=== PATIENT | male | born 1975 | race American Indian/Alaskan Native ===

== ENCOUNTER 2016-11-03 15:24 | Inpatient (IN) | payer OTHER ==
[2016-11-03] MEDS ORDERED: Sodium Chloride 0.9% 1,000 ML IV ONE (16:05)
[2016-11-03] MEDS ORDERED: Sodium Chloride 0.9% 1,000 ML ONE ×2 (16:16→18:15)
[2016-11-03 16:28] LABS: BASO # 0.1 K/uL (0.0-0.2); BASO % 0.6 % (0.0-2.0); EOS # 0.1 K/uL (0.0-0.7); EOS % 0.9 % (0.0-4.0); HEMATOCRIT 48.1 % (35.0-51.0); LYMPH # 1.7 K/uL (1.0-4.3); LYMPH % 17.9 % (20.0-40.0); MEAN CELL VOLUME 84.7 fL (80.0-94.0); MEAN CORPUSCULAR HEMOGLOBIN 28.2 pg (27.0-31.0); MEAN CORPUSCULAR HGB CONC 33.3 g/dL (33.0-37.0); MEAN PLATELET VOLUME 8.1 fL (7.2-11.7); MONO # 0.4 K/uL (0.0-0.8); MONO % 4.1 % (0.0-10.0); RED CELL DISTRIBUTION WIDTH 14.7 % (11.5-14.5); WHITE BLOOD COUNT 9.6 K/uL (4.8-10.8)
[2016-11-03 16:29] LABS: RBC URINE 11 /hpf (0-3); URINE BILIRUBIN NEGATIVE (NEGATIVE); URINE BLOOD NEGATIVE (NEGATIVE); URINE COLOR Yellow (YELLOW); URINE GLUCOSE (UA) NORMAL (Normal); URINE KETONE NEGATIVE (NEGATIVE); URINE LEUKOCYTE ESTERASE NEG Leu/uL (Negative); URINE PROTEIN 2+ mg/dL (NEGATIVE); URINE UROBILINOGEN NORMAL mg/dL (0.2-1.0); WBC URINE 4 /hpf (0-5)
[2016-11-03 16:52] LABS: CHLORIDE 95 mmol/L (98-107)
[2016-11-03 16:53] LABS: POTASSIUM 3.4 mmol/L (3.6-5.2); SODIUM 132 mmol/L (132-148)
--- NOTE | 2016-11-03 16:54 | C.PDOC ---
History Of Present Illness 41 year old patient, with a past medical history of kidney stones, presents to the ED complaining of left flank pain since yesterday. Patient states the pain is sharp. He denies any fever, nausea, vomiting, hematuria, or dysuria. He has a history of kidney stones, but no surgical intervention has been required. Time Seen by Provider: 11/03/16 16:04 Chief Complaint (Nursing): Male Genitourinary History Per: Patient History/Exam Limitations: no limitations Onset/Duration Of Symptoms: Days (yesterday) Current Symptoms Are (Timing): Still Present Severity: Mild Pain Scale Rating Of: 3 Quality Of Discomfort: Sharp, "Pain" Alleviating Factors: None Recent travel outside of the [place]: No Past Medical History Reviewed: Historical Data, Nursing Documentation, Vital Signs Vital Signs: Last Vital Signs Temp 98.6 F 11/03/16 18:24 Pulse 89 11/03/16 18:24 Resp 18 11/03/16 18:24 BP 122/75 11/03/16 18:24 Pulse Ox 100 11/03/16 18:28 - Medical History PMH: Kidney Stones Family History: States: Unknown Family Hx - Social History Hx Alcohol Use: No Hx Substance Use: No Review Of Systems Except As Marked, All Systems Reviewed And Found Negative. Constitutional: Negative for: Fever Gastrointestinal: Negative for: Nausea, Vomiting Genitourinary: Negative for: Dysuria, Hematuria Musculoskeletal: Positive for: Other (left flank pain) Physical Exam - Physical Exam Appears: Non-toxic, Other (mild distress) Skin: Warm, Dry Head: Atraumatic, Normacephalic Neck: Normal ROM, Supple Chest: Symmetrical Cardiovascular: Rhythm Regular Respiratory: Normal Breath Sounds, No Rales, No Rhonchi, No Wheezing Gastrointestinal/Abdominal: Soft, No Tenderness, No Guarding, No Rebound Back: CVA Tenderness (left), Other (left flank tenderness) Extremity: Normal ROM, No Pedal Edema, No Swelling Extremity: Bilateral: Atraumatic Neurological/Psych: Oriented x3, Normal Speech, Normal Cognition Gait: Steady ED Course And Treatment - Laboratory Results Result Diagrams: 11/03/16 16:09 11/03/16 16:09 O2 Sat by Pulse Oximetry: 100 (room air) Pulse Ox Interpretation: Normal - CT Scan/US Abdomen/Pelvis CT Other Rad Studies (CT/US): Read By Radiologist (Saskia Hill MD), Radiology Report Reviewed CT/US Interpretation: PROCEDURE: CT Abdomen and Pelvis without Oral or IV contrast. HISTORY: left flank pain - h/o kidney stones in past. COMPARISON: None available. TECHNIQUE: Contiguous axial images of the abdomen and pelvis. No oral or IV contrast administered. Coronal and Sagittal reformats generated and reviewed. Radiation dose: Total exam DLP = 286.22 mGy-cm. This CT exam was performed using one or more of the following dose reduction techniques: Automated exposure control, adjustment of the mA and/or kV according to patient size, and/or use of iterative reconstruction technique. FINDINGS: There is limited evaluation of the solid organs without the administration of IV contrast. Examination is also limited by paucity of intra-abdominal and intrapelvic fat. LOWER THORAX: No visible consolidation, pleural effusion, or pneumothorax. LIVER: Unremarkable unenhanced appearance. GALLBLADDER AND BILE DUCTS: Unremarkable unenhanced appearance. PANCREAS: Unremarkable unenhanced appearance. SPLEEN: Unremarkable unenhanced appearance. ADRENALS: Unremarkable unenhanced appearance. KIDNEYS AND URETERS: 12 mm proximal left ureteral calculus with proximal hydroureteronephrosis. No right-sided hydronephrosis or obstructing calculus identified. BLADDER: The urinary bladder appears unremarkable. REPRODUCTIVE: Unremarkable. APPENDIX: Not clearly identified. No secondary signs of acute appendicitis. BOWEL: The stomach is nondistended. Lack of oral contrast limits evaluation for bowel pathology. The bowel loops appear within normal limits of caliber without evidence of intestinal obstruction. PERITONEUM: No significant free fluid. No definite free air. LYMPH NODES: No bulky lymphadenopathy identified. VASCULATURE: Grossly unremarkable unenhanced appearance. BONES: No acute osseous abnormality is detected. OTHER FINDINGS: None. IMPRESSION: Limited study. 12 mm proximal left ureteral calculus with proximal hydroureteronephrosis. Progress Note: Plan: Abdomen/Pelvis CT, Labs, IV fluids, Toradol. Progress: Case discussed with Dr. Portillo, Urology, who recommends Cipro 400 mg Q12. He also states no po after midnight for intervention tomorrow. First dose of Cipro was given in the ED. Case discussed with Dr. Owens who was made aware and will admit the patient. Disposition - Disposition Disposition: HOSPITALIZED Disposition Time: 17:25 Condition: STABLE - Clinical Impression Clinical Impression: Nephrolithiasis - Scribe Statement The provider has reviewed the documentation as recorded by the Scribe Steph Dooley Provider Attestation: All medical record entries made by the Scribe were at my direction and personally dictated by me. I have reviewed the chart and agree that the record accurately reflects my personal performance of the history, physical exam, medical decision making, and the department course for this patient. I have also personally directed, reviewed, and agree with the discharge instructions and disposition.
[2016-11-03 16:55] LABS: ALB/GLOB RATIO 1.8 (1.0-2.1); ALKALINE PHOSPHATASE 106 U/L (38-126); ALT/SGPT 32 U/L (21-72); AST/SGOT 28 U/L (17-59); BILIRUBIN,TOTAL 1.1 mg/dL (0.2-1.3); BLOOD UREA NITROGEN 11 mg/dL (9-20); CALCIUM 9.3 mg/dl (8.6-10.4); CARBON DIOXIDE 24 mmol/L (22-30); GFR AFRICAN-AMERICAN > 60; GLUCOSE,RANDOM 94 mg/dL (75-110); TOTAL PROTEIN 8.5 g/dL (6.3-8.3)
--- NOTE | 2016-11-03 16:58 | CT ---
PROCEDURE: CT Abdomen and Pelvis without Oral or IV contrast. HISTORY: left flank pain - h/o kidney stones in past COMPARISON: None available. TECHNIQUE: Contiguous axial images of the abdomen and pelvis. No oral or IV contrast administered. Coronal and Sagittal reformats generated and reviewed. Radiation dose: Total exam DLP = 286.22 mGy-cm. This CT exam was performed using one or more of the following dose reduction techniques: Automated exposure control, adjustment of the mA and/or kV according to patient size, and/or use of iterative reconstruction technique. FINDINGS: There is limited evaluation of the solid organs without the administration of IV contrast. Examination is also limited by paucity of intra-abdominal and intrapelvic fat. LOWER THORAX: No visible consolidation, pleural effusion, or pneumothorax. LIVER: Unremarkable unenhanced appearance. GALLBLADDER AND BILE DUCTS: Unremarkable unenhanced appearance. PANCREAS: Unremarkable unenhanced appearance. SPLEEN: Unremarkable unenhanced appearance. ADRENALS: Unremarkable unenhanced appearance. KIDNEYS AND URETERS: 12 mm proximal left ureteral calculus with proximal hydroureteronephrosis. No right-sided hydronephrosis or obstructing calculus identified. BLADDER: The urinary bladder appears unremarkable. REPRODUCTIVE: Unremarkable. APPENDIX: Not clearly identified. No secondary signs of acute appendicitis. BOWEL: The stomach is nondistended. Lack of oral contrast limits evaluation for bowel pathology. The bowel loops appear within normal limits of caliber without evidence of intestinal obstruction. PERITONEUM: No significant free fluid. No definite free air. LYMPH NODES: No bulky lymphadenopathy identified. VASCULATURE: Grossly unremarkable unenhanced appearance. BONES: No acute osseous abnormality is detected. OTHER FINDINGS: None. IMPRESSION: Limited study. 12 mm proximal left ureteral calculus with proximal hydroureteronephrosis.
[2016-11-03] MEDS ORDERED: Ciprofloxacin 400mg/200ml D5W 400 MG/200 ML BAG IVPB SCH (18:00)
--- NOTE | 2016-11-03 18:02 | CP.PCM.HP ---
History of Present Illness - History of Present Illness History of Present Illness: This is a 41 year old male from [facility] who reports he has had 1 and a half days of left flank pain that radiates down to his groin. He explains he is aware he has a history of kidney stones in the past however this time it was very severe and didn't seem to go away. He reports he only has a history of kidney stones and is now aware of any other medical history. He denied difficulty urinating, denied dysuria, denied In the emergency room he had a CT scan of the abd and pelvis and has a 12 mm stone seen in the proximal ureter with some hydronephrosis seen. His UA showed some blood, otherwise no WBC. Lab work in ER was stable, he did not have an elevated WBC or left shift. No fever. He was started on Cipro 400 BID and will be NPO after midnight. By the time I saw patient in ER he had already recivied pain medication that he says helps and that the flank pain had resolved but that he still had left lower quardant pain He denied fever, denied chills, denied shortness of breath, denied chest pain, denied palpitations, denied headache, denied anxiety, denied feeling nervous, denied Medical History: Previous kidney stones but he explains he's never had hospitalizations for them Surgical History: None Family History: He reports both are ok, smoking Social History: Denied smoking, occasional alcohol, denied drug use Allergies: NKDA Present on Admission - Present on Admission Any Indicators Present on Admission: Yes History of DVT/PE: No History of Uncontrolled Diabetes: No Urinary Catheter: No Decubitus Ulcer Present: No Review of Systems - Constitutional Constitutional: As Per HPI. absent: Anorexia, Chills, Fever, Frequent Falls, Headache, Malaise, Night Sweats - EENT Eyes: As Per HPI. absent: Blurred Vision Ears: absent: Decreased Hearing, Ear Discharge Nose/Mouth/Throat: As Per HPI - Cardiovascular Cardiovascular: absent: Chest Pain, Chest Pain at Rest, Chest Pain with Activity , Claudication, Diaphoresis, Dyspnea, Dyspnea on Exertion, Edema, Irregular Heart Rhythm - Respiratory Respiratory: absent: Cough, Dyspnea, Hemoptysis, Dyspnea on Exertion, Wheezing, Snoring - Gastrointestinal Gastrointestinal: Abdominal Pain Additional comments: Left flank pain moving to groin - Genitourinary Genitourinary: As Per HPI, Flank Pain. absent: Change in Urinary Stream, Difficulty Urinating, Dysuria, Hematuria, Pyuria, Urinary Frequency, Urinary Hesitance - Musculoskeletal Musculoskeletal: absent: Abnormal Gait - Neurological Neurological: absent: Abnormal Gait Past Patient History - Past Social History Smoking Status: Never Smoked - RENAL Hx Kidney Stones: Yes - PSYCHIATRIC Hx Substance Use: No Meds Allergies/Adverse Reactions: Allergies Allergy/AdvReac Type Severity Reaction Status Date / Time No Known Allergies Allergy Verified 11/03/16 15:33 Physical Exam - Constitutional Appears: Well, Non-toxic, No Acute Distress - Head Exam Head Exam: NORMAL INSPECTION, NORMOCEPHALIC - Eye Exam Eye Exam: EOMI, Normal appearance - ENT Exam ENT Exam: Mucous Membranes Moist - Neck Exam Neck exam: Positive for: Normal Inspection - Respiratory Exam Respiratory Exam: Clear to Auscultation Bilateral, NORMAL BREATHING PATTERN - Cardiovascular Exam Cardiovascular Exam: REGULAR RHYTHM. absent: Diastolic murmur - GI/Abdominal Exam GI & Abdominal Exam: Normal Bowel Sounds, Soft. absent: Distended, Firm, Guarding Additional comments: Left flank pain - Extremities Exam Extremities exam: Positive for: normal inspection - Back Exam Back exam: CVA tenderness (L), NORMAL INSPECTION - Neurological Exam Neurological exam: Alert, CN II-XII Intact, Oriented x3 - Psychiatric Exam Psychiatric exam: Normal Affect, Normal Mood - Skin Skin Exam: Normal Color, Warm Results - Vital Signs Recent Vital Signs: Last Vital Signs Temp 98.3 F 11/03/16 15:33 Pulse 77 11/03/16 15:33 Resp 18 11/03/16 15:33 BP 147/107 H 11/03/16 15:33 Pulse Ox 100 11/03/16 17:51 - Labs Result Diagrams: 11/03/16 16:09 11/03/16 16:09 Assessment & Plan (1) Nephrolithiasis Status: Acute Priority: High Comment: 11/03: Patient had CT showing 12mm proximal stone, per urology will be NPO and started on Cipro 400 BID. Follow UA, UC+S
[2016-11-03] MEDS ORDERED: Ciprofloxacin 400mg/200ml D5W 400 MG/200 ML BAG IVPB ONE (18:15)
[2016-11-03] MEDS: Ciprofloxacin 400mg/200ml D5W 400 MG/200 ML BAG IVPB SCH (18:17)
[2016-11-03] MEDS: Sodium Chloride 0.9% 1,000 ML IV SCH (18:18)
[2016-11-03] MEDS ORDERED: Pneumococcal 23-Valent Vaccine IM ONE (20:19)
[2016-11-03 21:15] LABS: URINE BILIRUBIN NEGATIVE (NEGATIVE); URINE BLOOD 2+ (NEGATIVE); URINE COLOR Colorless (YELLOW); URINE GLUCOSE (UA) NORMAL (Normal); URINE KETONE NEGATIVE (NEGATIVE); URINE LEUKOCYTE ESTERASE 1+ Leu/uL (Negative); URINE PROTEIN NEGATIVE (NEGATIVE); URINE UROBILINOGEN NORMAL mg/dL (0.2-1.0); WBC URINE 1 /hpf (0-5)
[2016-11-04] MEDS: Sodium Chloride 0.9% 1,000 ML IV SCH ×3 (04:00→18:35)
[2016-11-04] MEDS: Ciprofloxacin 400mg/200ml D5W 400 MG/200 ML BAG IVPB SCH ×2 (05:54→18:00)
[2016-11-04 07:30] LABS: BASO # 0.1 K/uL (0.0-0.2); BASO % 1.4 % (0.0-2.0); EOS # 0.2 K/uL (0.0-0.7); EOS % 3.6 % (0.0-4.0); HEMATOCRIT 43.1 % (35.0-51.0); LYMPH # 2.2 K/uL (1.0-4.3); LYMPH % 39.2 % (20.0-40.0); MEAN CELL VOLUME 84.7 fL (80.0-94.0); MEAN CORPUSCULAR HEMOGLOBIN 28.2 pg (27.0-31.0); MEAN CORPUSCULAR HGB CONC 33.3 g/dL (33.0-37.0); MEAN PLATELET VOLUME 7.6 fL (7.2-11.7); MONO # 0.4 K/uL (0.0-0.8); MONO % 7.4 % (0.0-10.0); RED CELL DISTRIBUTION WIDTH 14.8 % (11.5-14.5); WHITE BLOOD COUNT 5.5 K/uL (4.8-10.8)
[2016-11-04 07:38] LABS: CHLORIDE 107 mmol/L (98-107)
[2016-11-04 07:39] LABS: POTASSIUM 3.7 mmol/L (3.6-5.2); SODIUM 138 mmol/L (132-148)
[2016-11-04 07:41] LABS: ALB/GLOB RATIO 1.1 (1.0-2.1); AST/SGOT 23 U/L (17-59); BILIRUBIN,TOTAL 1.8 mg/dL (0.2-1.3); BLOOD UREA NITROGEN 10 mg/dL (9-20); CARBON DIOXIDE 24 mmol/L (22-30); GFR AFRICAN-AMERICAN > 60; TOTAL PROTEIN 6.6 g/dL (6.3-8.3)
[2016-11-04 07:42] LABS: ALKALINE PHOSPHATASE 67 U/L (38-126); ALT/SGPT 24 U/L (21-72); CALCIUM 8.7 mg/dl (8.6-10.4); GLUCOSE,RANDOM 98 mg/dL (75-110)
--- NOTE | 2016-11-04 11:30 | RAD ---
HISTORY: Preoperative examination COMPARISON: No prior. FINDINGS: LUNGS: The lungs are well inflated and clear. PLEURA: No significant pleural effusion identified, no pneumothorax apparent. CARDIOVASCULAR: Normal. OSSEOUS STRUCTURES: No significant abnormalities. VISUALIZED UPPER ABDOMEN: Normal. OTHER FINDINGS: None. IMPRESSION: No active pulmonary disease.
[2016-11-04] MEDS ORDERED: Iohexol 240 (50 ml) ONE (15:05)
[2016-11-04] MEDS ORDERED: Ciprofloxacin 400mg/200ml D5W 0 MG/0 ML BAG IVPB ONE (15:05)
[2016-11-04] MEDS ORDERED: Midazolam 2 MG/2 ML VIAL ONE (15:07)
[2016-11-04] MEDS ORDERED: Propofol 10 mg/ml Inj (20 ML) ONE (15:07)
[2016-11-04] MEDS ORDERED: Lactated Ringer's 1,000 ML IV ONE (15:15)
[2016-11-04] MEDS: HYDROmorphone 0.5 mg/0.5 ml ISec IVP PRN ×2 (15:52→15:59)
--- NOTE | 2016-11-04 17:47 | RAD ---
PROCEDURE: Intraoperative Fluoroscopy. HISTORY: LEFT RENAL STONE FINDINGS: Fluoroscopic assistance was provided. Please refer to the intraoperative report.
[2016-11-04] MEDS: Lactated Ringer's 1,000 ML IV SCH (18:05)
--- NOTE | 2016-11-04 18:09 | CP.PCM.PN ---
<BlaiseLillie - Last Filed: 11/04/16 18:04> Subjective - Date & Time of Evaluation Date of Evaluation: 11/04/16 Time of Evaluation: 07:35 - Subjective Subjective: Patient seen and examined at bedside this morning. He denies pain and states that the medication he is getting is alleviating the pain. He denies N/V. He is NPO for stent placement today with Dr. Portillo. He has no other complaints. Objective - Vital Signs/Intake and Output Vital Signs (last 24 hours): Temp Pulse Resp BP Pulse Ox 97.4 F L 65 14 126/77 100 11/04/16 16:30 11/04/16 16:30 11/04/16 16:30 11/04/16 16:30 11/04/16 16:30 Intake and Output: 11/04/16 11/04/16 06:59 18:59 Intake Total 800 1750 Output Total 600 600 Balance 200 1150 - Medications Medications: Current Medications Heparin Sodium (Porcine) (Heparin) 5,000 units SC Q8 [facility] Last Admin: 11/04/16 13:31 Dose: Not Given Ciprofloxacin (Cipro 400mg/200ml Dsw) 400 mg in 200 mls @ 133 mls/hr IVPB Q12H [facility] Last Admin: 11/04/16 05:54 Dose: 133 mls/hr Sodium Chloride (Sodium Chloride 0.9%) 1,000 mls @ 150 mls/hr IV .Q6H40M [facility] Last Admin: 11/04/16 12:17 Dose: 150 mls/hr Lactated Ringer's (Lactated Ringer's) 1,000 mls @ 100 mls/hr IV .Q10H [facility] Ketorolac Tromethamine (Toradol) 30 mg IVP Q6 [facility] Stop: 11/05/16 00:01 Last Admin: 11/04/16 11:12 Dose: 30 mg Pantoprazole Sodium (Protonix Inj) 40 mg IVP DAILY [facility] Last Admin: 11/04/16 09:49 Dose: 40 mg - Labs Labs: 11/04/16 07:16 11/04/16 07:16 - Constitutional Appears: Non-toxic, No Acute Distress - Head Exam Head Exam: ATRAUMATIC, NORMAL INSPECTION - Eye Exam Eye Exam: EOMI, Normal appearance Pupil Exam: NORMAL ACCOMODATION - ENT Exam ENT Exam: Mucous Membranes Moist - Respiratory Exam Respiratory Exam: Clear to Ausculation Bilateral, NORMAL BREATHING PATTERN. absent: Accessory Muscle Use, Rales, Rhonchi, Wheezes, Respiratory Distress - Cardiovascular Exam Cardiovascular Exam: REGULAR RHYTHM, +S1, +S2 - GI/Abdominal Exam GI & Abdominal Exam: Soft, Normal Bowel Sounds. absent: Distended, Firm, Guarding, Tenderness - Extremities Exam Extremities Exam: Normal Inspection - Back Exam Back Exam: NORMAL INSPECTION. absent: CVA tenderness (L), CVA tenderness (R), paraspinal tenderness - Neurological Exam Neurological Exam: Alert, Awake, CN II-XII Intact, Normal Gait, Oriented x3 Neuro motor strength exam: Left Upper Extremity: 5, Right Upper Extremity: 5, Left Lower Extremity: 5, Right Lower Extremity: 5 - Psychiatric Exam Psychiatric exam: Normal Affect, Normal Mood - Skin Skin Exam: Intact, Normal Color, Warm Assessment and Plan - Assessment and Plan (Free Text) Assessment: Nephrolithiasis Hx of kidney stones in the past, never been hospitalized CT showing 12mm proximal stone Dr. Portillo urology, help appreciated - Stent placed in OR today (11/04) Cipro 400 IVPB BID Urine culture - negative for growth Toradol 30mg IVP prn pain LR at 11 cc/hour labs and eelctrolytes wnl Prophylactic Measures Heparin 5,000 U SC Q8 Protonix 40mg IVP daily SCDs Likely discharge tomorrow if cleared by urology. <Blake Owens - Last Filed: 11/05/16 08:18> Objective - Vital Signs/Intake and Output Vital Signs (last 24 hours): Temp Pulse Resp BP Pulse Ox 98.9 F 66 20 127/76 99 11/05/16 08:09 11/05/16 08:09 11/05/16 08:09 11/05/16 08:09 11/05/16 08:09 Intake and Output: 11/05/16 11/05/16 06:59 18:59 Intake Total 3100 Output Total 2350 Balance 750 - Medications Medications: Current Medications Heparin Sodium (Porcine) (Heparin) 5,000 units SC Q8 [facility] Last Admin: 11/05/16 06:00 Dose: 5,000 units Ciprofloxacin (Cipro 400mg/200ml Dsw) 400 mg in 200 mls @ 133 mls/hr IVPB Q12H [facility] Last Admin: 11/05/16 05:30 Dose: 133 mls/hr Sodium Chloride (Sodium Chloride 0.9%) 1,000 mls @ 150 mls/hr IV .Q6H40M [facility] Last Admin: 11/05/16 06:03 Dose: 150 mls/hr Lactated Ringer's (Lactated Ringer's) 1,000 mls @ 100 mls/hr IV .Q10H [facility] Last Admin: 11/05/16 02:00 Dose: Not Given Pantoprazole Sodium (Protonix Inj) 40 mg IVP DAILY [facility] Last Admin: 11/04/16 09:49 Dose: 40 mg - Labs Labs: 11/04/16 07:16 11/04/16 07:16 Assessment and Plan (1) Nephrolithiasis Status: Acute Attending/Attestation - Attestation I have personally seen and examined this patient.: Yes I have fully participated in the care of the patient.: Yes I have reviewed all pertinent clinical information, including history, physical exam and plan: Yes Notes (Text): Medical attending: Patient was seen and examined by me, agrees the above note by medical device. The patient in the morning was still nothing by mouth, he did receive some pain medication that he said controlled the pain very well. He had not yet had any intervention by urology at the time we saw him in the morning. Later on during the day are that he had a cystoscopy with stent placement. So at this time he's still on intravenous fluids as well as IV anti biotics. Following the cultures, and hopefully if he does well we could discharge the patient relatively soon Thank you very much, Blake Owens
[2016-11-05 00:57] VITALS: RESP 20
[2016-11-05] MEDS: Sodium Chloride 0.9% 1,000 ML IV SCH ×4 (01:00→13:46)
[2016-11-05] MEDS: Lactated Ringer's 1,000 ML IV SCH (02:00)
[2016-11-05] MEDS: Ciprofloxacin 400mg/200ml D5W 400 MG/200 ML BAG IVPB SCH (05:30)
[2016-11-05 08:06] LABS: BASO # 0.1 K/uL (0.0-0.2); BASO % 1.4 % (0.0-2.0); EOS # 0.3 K/uL (0.0-0.7); EOS % 5.5 % (0.0-4.0); HEMATOCRIT 42.6 % (35.0-51.0); LYMPH # 1.9 K/uL (1.0-4.3); LYMPH % 36.2 % (20.0-40.0); MEAN CELL VOLUME 84.6 fL (80.0-94.0); MEAN CORPUSCULAR HEMOGLOBIN 28.5 pg (27.0-31.0); MEAN CORPUSCULAR HGB CONC 33.6 g/dL (33.0-37.0); MEAN PLATELET VOLUME 7.9 fL (7.2-11.7); MONO # 0.4 K/uL (0.0-0.8); MONO % 6.8 % (0.0-10.0); NRBC % 0.1 % (0.0-2.0); RED CELL DISTRIBUTION WIDTH 14.8 % (11.5-14.5); WHITE BLOOD COUNT 5.2 K/uL (4.8-10.8)
[2016-11-05 08:10] VITALS: BP 127/76; PULSE 66; TEMP 98.9; O2SAT 99
[2016-11-05 08:21] LABS: CHLORIDE 107 mmol/L (98-107)
[2016-11-05 08:22] LABS: POTASSIUM 3.9 mmol/L (3.6-5.2); SODIUM 139 mmol/L (132-148)
[2016-11-05 08:24] LABS: ALB/GLOB RATIO 1.1 (1.0-2.1); AST/SGOT 22 U/L (17-59); BILIRUBIN,TOTAL 1.4 mg/dL (0.2-1.3); CARBON DIOXIDE 23 mmol/L (22-30); GFR AFRICAN-AMERICAN > 60; TOTAL PROTEIN 6.7 g/dL (6.3-8.3)
[2016-11-05 08:25] LABS: ALKALINE PHOSPHATASE 76 U/L (38-126); ALT/SGPT 22 U/L (21-72); BLOOD UREA NITROGEN 9 mg/dL (9-20); CALCIUM 8.7 mg/dl (8.6-10.4); GLUCOSE,RANDOM 98 mg/dL (75-110); PHOSPHOROUS 3.5 mg/dL (2.5-4.5)
--- NOTE | 2016-11-05 11:26 | RAD ---
HISTORY: Left renal stone COMPARISON: No prior. FINDINGS: There is a 16 x 15 mm round calcification overlying the left renal silhouette. There is no right nephrolithiasis. BOWEL: Non obstructive bowel gas pattern. BONES: Normal. OTHER FINDINGS: None. IMPRESSION: 15 x 16 mm left renal stone.
--- NOTE | 2016-11-05 15:54 | CP.PCM.DIS ---
<Birgit Forrester DO - Last Filed: 11/05/16 15:51> Provider - Provider Date of Admission: 11/03/16 17:23 Attending physician: Blake Owens DO Consults: Dr. Portillo Time Spent in preparation of Discharge (in minutes): 40 Diagnosis - Discharge Diagnosis (1) Nephrolithiasis Status: Acute Priority: High Comment: Patient status post cystoscopy with left ureteral stent with Dr. Portillo. Patient to follow up with Dr. Portillo on 11/11. Hospital Course - Lab Results Lab Results: Most Recent Lab Values WBC 5.2 K/uL (4.8-10.8) 11/05/16 07:51 RBC 5.03 Mil/uL (4.40-5.90) 11/05/16 07:51 Hgb 14.3 g/dL (12.0-18.0) 11/05/16 07:51 Hct 42.6 % (35.0-51.0) 11/05/16 07:51 MCV 84.6 fL (80.0-94.0) 11/05/16 07:51 MCH 28.5 pg (27.0-31.0) 11/05/16 07:51 MCHC 33.6 g/dL (33.0-37.0) 11/05/16 07:51 RDW 14.8 % (11.5-14.5) H 11/05/16 07:51 Plt Count 255 K/uL (130-400) 11/05/16 07:51 MPV 7.9 fL (7.2-11.7) 11/05/16 07:51 Neut % (Auto) 50.1 % (50.0-75.0) 11/05/16 07:51 Lymph % (Auto) 36.2 % (20.0-40.0) 11/05/16 07:51 Archuleta % (Auto) 6.8 % (0.0-10.0) 11/05/16 07:51 Eos % (Auto) 5.5 % (0.0-4.0) H 11/05/16 07:51 Baso % (Auto) 1.4 % (0.0-2.0) 11/05/16 07:51 Neut # 2.6 K/uL (1.8-7.0) 11/05/16 07:51 Lymph # 1.9 K/uL (1.0-4.3) 11/05/16 07:51 Archuleta # 0.4 K/uL (0.0-0.8) 11/05/16 07:51 Eos # 0.3 K/uL (0.0-0.7) 11/05/16 07:51 Baso # 0.1 K/uL (0.0-0.2) 11/05/16 07:51 Sodium 139 mmol/L (132-148) 11/05/16 07:51 Potassium 3.9 mmol/L (3.6-5.2) 11/05/16 07:51 Chloride 107 mmol/L (98-107) 11/05/16 07:51 Carbon Dioxide 23 mmol/L (22-30) 11/05/16 07:51 Anion Gap 13 (10-20) 11/05/16 07:51 BUN 9 mg/dL (9-20) 11/05/16 07:51 Creatinine 0.9 MG/DL (0.8-1.5) 11/05/16 07:51 Est GFR ( Amer) > 60 11/05/16 07:51 Est GFR (Non-Af Amer) > 60 11/05/16 07:51 Random Glucose 98 mg/dL (75-110) 11/05/16 07:51 Calcium 8.7 mg/dl (8.6-10.4) 11/05/16 07:51 Phosphorus 3.5 mg/dL (2.5-4.5) 11/05/16 07:51 Magnesium 2.0 mg/dL (1.6-2.3) 11/05/16 07:51 Total Bilirubin 1.4 mg/dL (0.2-1.3) H 11/05/16 07:51 AST 22 U/L (17-59) 11/05/16 07:51 ALT 22 U/L (21-72) 11/05/16 07:51 Alkaline Phosphatase 76 U/L (38-126) 11/05/16 07:51 Total Protein 6.7 g/dL (6.3-8.3) 11/05/16 07:51 Albumin 3.6 g/dL (3.5-5.0) 11/05/16 07:51 Globulin 3.1 gm/dL (2.2-3.9) 11/05/16 07:51 Albumin/Globulin Ratio 1.1 (1.0-2.1) 11/05/16 07:51 Lipase 35 U/L (23-300) 11/03/16 16:09 Urine Color Colorless (YELLOW) 11/03/16 21:04 Urine Clarity Clear (Clear) 11/03/16 21:04 Urine pH 7.0 (5.0-8.0) 11/03/16 21:04 Ur Specific [place] 1.001 (1.003-1.030) L 11/03/16 21:04 Urine Protein Negative mg/dL (NEGATIVE) 11/03/16 21:04 Urine Glucose (UA) Normal mg/dL (Normal) 11/03/16 21:04 Urine Ketones Negative mg/dL (NEGATIVE) 11/03/16 21:04 Urine Blood 2+ (NEGATIVE) H 11/03/16 21:04 Urine Nitrate Negative (NEGATIVE) 11/03/16 21:04 Urine Bilirubin Negative (NEGATIVE) 11/03/16 21:04 Urine Urobilinogen Normal mg/dL (0.2-1.0) 11/03/16 21:04 Ur Leukocyte Esterase 1+ Tyron/uL (Negative) H 11/03/16 21:04 Urine WBC (Auto) 1 /hpf (0-5) 11/03/16 21:04 Urine RBC (Auto) 11 /hpf (0-3) H 11/03/16 16:09 Ur Squamous Epith Cells < 1 /hpf (0-5) 11/03/16 16:09 - Hospital Course Hospital Course: On Admission: This is a 41 year old male from [facility] who reports he has had 1 and a half days of left flank pain that radiates down to his groin. He explains he is aware he has a history of kidney stones in the past however this time it was very severe and didn't seem to go away. He reports he only has a history of kidney stones and is now aware of any other medical history. He denied difficulty urinating, denied dysuria, denied In the emergency room he had a CT scan of the abd and pelvis and has a 12 mm stone seen in the proximal ureter with some hydronephrosis seen. His UA showed some blood, otherwise no WBC. Lab work in ER was stable, he did not have an elevated WBC or left shift. No fever. He was started on Cipro 400 BID and will be NPO after midnight. By the time I saw patient in ER he had already recivied pain medication that he says helps and that the flank pain had resolved but that he still had left lower quardant pain He denied fever, denied chills, denied shortness of breath, denied chest pain, denied palpitations, denied headache, denied anxiety, denied feeling nervous, denied During Hospitalization: Patient had cystoscopy with left ureteral stent placed. Urine culture was negative for growth. CT scan showed 12mm proximal stone. On Discharge: Patient is stable for discharge home per Dr. Owens. Patient is to follow up with Dr. Portillo on 11/11 at 1PM. Patient is being given prescriptions for vicodin and macrobid per Dr. Potrillo. Patient is to follow up with the [facility] to establish care. Patient is to return to the ED if his symptoms reoccur or worsen. This was explained to the patient who understands and agrees. Discharge Exam - Head Exam Head Exam: ATRAUMATIC, NORMAL INSPECTION - Eye Exam Eye Exam: EOMI - ENT Exam ENT Exam: Mucous Membranes Moist - Respiratory Exam Respiratory Exam: Clear to PA & Lateral, NORMAL BREATHING PATTERN - Cardiovascular Exam Cardiovascular Exam: +S1, +S2 - GI/Abdominal Exam GI & Abdominal Exam: Soft. absent: Tenderness - Extremities Exam Extremities exam: normal inspection - Neurological Exam Neurological exam: Alert, Oriented x3 - Psychiatric Exam Psychiatric exam: Normal Affect - Skin Skin Exam: Dry, Warm Discharge Plan - Follow Up Plan Condition: STABLE Disposition: HOME/ ROUTINE Additional Instructions: Patient is stable for discharge home per Dr. Owens. Patient is to follow up with Dr. Portillo on 11/11 at 1PM. Patient is being given prescriptions for vicodin and macrobid per Dr. Portillo. Patient is to follow up with the [facility] to establish care. Patient is to return to the ED if his symptoms reoccur or worsen. This was explained to the patient who understands and agrees. Referrals: [facility] [Outside] Jude Portillo MD [Staff Provider] - 11/11/16 (1PM with Dr. Portillo.) <Blake Owens - Last Filed: 11/05/16 16:18> Provider - Provider Date of Admission: 11/03/16 17:23 Attending physician: Blake Owens DO Diagnosis - Discharge Diagnosis (1) Nephrolithiasis Status: Acute Priority: High Hospital Course - Lab Results Lab Results: Most Recent Lab Values WBC 5.2 K/uL (4.8-10.8) 11/05/16 07:51 RBC 5.03 Mil/uL (4.40-5.90) 11/05/16 07:51 Hgb 14.3 g/dL (12.0-18.0) 11/05/16 07:51 Hct 42.6 % (35.0-51.0) 11/05/16 07:51 MCV 84.6 fL (80.0-94.0) 11/05/16 07:51 MCH 28.5 pg (27.0-31.0) 11/05/16 07:51 MCHC 33.6 g/dL (33.0-37.0) 11/05/16 07:51 RDW 14.8 % (11.5-14.5) H 11/05/16 07:51 Plt Count 255 K/uL (130-400) 11/05/16 07:51 MPV 7.9 fL (7.2-11.7) 11/05/16 07:51 Neut % (Auto) 50.1 % (50.0-75.0) 11/05/16 07:51 Lymph % (Auto) 36.2 % (20.0-40.0) 11/05/16 07:51 Archuleta % (Auto) 6.8 % (0.0-10.0) 11/05/16 07:51 Eos % (Auto) 5.5 % (0.0-4.0) H 11/05/16 07:51 Baso % (Auto) 1.4 % (0.0-2.0) 11/05/16 07:51 Neut # 2.6 K/uL (1.8-7.0) 11/05/16 07:51 Lymph # 1.9 K/uL (1.0-4.3) 11/05/16 07:51 Archuleta # 0.4 K/uL (0.0-0.8) 11/05/16 07:51 Eos # 0.3 K/uL (0.0-0.7) 11/05/16 07:51 Baso # 0.1 K/uL (0.0-0.2) 11/05/16 07:51 Sodium 139 mmol/L (132-148) 11/05/16 07:51 Potassium 3.9 mmol/L (3.6-5.2) 11/05/16 07:51 Chloride 107 mmol/L (98-107) 11/05/16 07:51 Carbon Dioxide 23 mmol/L (22-30) 11/05/16 07:51 Anion Gap 13 (10-20) 11/05/16 07:51 BUN 9 mg/dL (9-20) 11/05/16 07:51 Creatinine 0.9 MG/DL (0.8-1.5) 11/05/16 07:51 Est GFR ( Amer) > 60 11/05/16 07:51 Est GFR (Non-Af Amer) > 60 11/05/16 07:51 Random Glucose 98 mg/dL (75-110) 11/05/16 07:51 Calcium 8.7 mg/dl (8.6-10.4) 11/05/16 07:51 Phosphorus 3.5 mg/dL (2.5-4.5) 11/05/16 07:51 Magnesium 2.0 mg/dL (1.6-2.3) 11/05/16 07:51 Total Bilirubin 1.4 mg/dL (0.2-1.3) H 11/05/16 07:51 AST 22 U/L (17-59) 11/05/16 07:51 ALT 22 U/L (21-72) 11/05/16 07:51 Alkaline Phosphatase 76 U/L (38-126) 11/05/16 07:51 Total Protein 6.7 g/dL (6.3-8.3) 11/05/16 07:51 Albumin 3.6 g/dL (3.5-5.0) 11/05/16 07:51 Globulin 3.1 gm/dL (2.2-3.9) 11/05/16 07:51 Albumin/Globulin Ratio 1.1 (1.0-2.1) 11/05/16 07:51 Lipase 35 U/L (23-300) 11/03/16 16:09 Urine Color Colorless (YELLOW) 11/03/16 21:04 Urine Clarity Clear (Clear) 11/03/16 21:04 Urine pH 7.0 (5.0-8.0) 11/03/16 21:04 Ur Specific [place] 1.001 (1.003-1.030) L 11/03/16 21:04 Urine Protein Negative mg/dL (NEGATIVE) 11/03/16 21:04 Urine Glucose (UA) Normal mg/dL (Normal) 11/03/16 21:04 Urine Ketones Negative mg/dL (NEGATIVE) 11/03/16 21:04 Urine Blood 2+ (NEGATIVE) H 11/03/16 21:04 Urine Nitrate Negative (NEGATIVE) 11/03/16 21:04 Urine Bilirubin Negative (NEGATIVE) 11/03/16 21:04 Urine Urobilinogen Normal mg/dL (0.2-1.0) 11/03/16 21:04 Ur Leukocyte Esterase 1+ Tyron/uL (Negative) H 11/03/16 21:04 Urine WBC (Auto) 1 /hpf (0-5) 11/03/16 21:04 Urine RBC (Auto) 11 /hpf (0-3) H 11/03/16 16:09 Ur Squamous Epith Cells < 1 /hpf (0-5) 11/03/16 16:09 Attending/Attestation - Attestation I have personally seen and examined this patient.: Yes I have fully participated in the care of the patient.: Yes I have reviewed all pertinent clinical information, including history, physical exam and plan: Yes Notes (Text): 11/05/16 16:16 Medical attending: Patient was seen and examined by me, agrees the above note by medical staff physician. The patient successfully had a left cystoscopy with stent placement. The patient reported that the pain that he was having in his flanks as well as his left lower quadrant of the abdomen that radiated to his groin this pain is resolved. He was given instructions by urology to follow-up. There is also a prescription by urology for pain medication as well as anti-biotic. We also explained to the patient that he should consider following up at the [facility] in case he does not have insurance Reviewed some of his lab work and they are stable the BUN/creatinine is fine, white blood cell count was fine. He denied having chest pain denied shortness of breath, denied abdominal pain. He also denied fever. So at this time we will discharge the patient Thank you very much, Blake Owens
--- NOTE | 2016-11-06 08:38 | CARD ---
APPROVED REPORT EKG Measurement Heart [id number] <Conclusion> Normal sinus rhythm Left anterior fascicular block Left ventricular hypertrophy with QRS widening Cannot rule out Septal infarct, age undetermined Abnormal ECG
== END 2016-11-05 14:42 | disposition home or self-care (01) | DRG 324 ==
LOC: C.ER 15:24 → C.9E 17:23 → C.3T 18:08
PROVIDERS: ADMIT Hospitalist; ATTEND Hospitalist
PROC: 0T778DZ Dilation of Left Ureter with Intraluminal Device, Via Natural or Artificial Opening Endoscopic (ICD-10-PCS; principal; 2016-11-03)
DX: N13.2 Hydronephrosis with renal and ureteral calculous obstruction (principal); Z87.442 Personal history of urinary calculi

== ENCOUNTER 2016-11-21 10:17 | Emergency (ER) | payer MEDICAID ==
[2016-11-21 10:18] VITALS: BMI 27.1
[2016-11-21 10:21] VITALS: RESP 18; O2SAT 99
[2016-11-21] MEDS ORDERED: Sodium Chloride 0.9% 1,000 ML IV ONE (11:18)
[2016-11-21 11:38] LABS: SQUAMOUS EPITHIAL < 1 /hpf (0-5); URINE BACTERIA RARE (<OCC); URINE BILIRUBIN NEGATIVE (NEGATIVE); URINE BLOOD 1+ (NEGATIVE); URINE CLARITY Clear (Clear); URINE COLOR Yellow (YELLOW); URINE GLUCOSE (UA) NORMAL (Normal); URINE LEUKOCYTE ESTERASE 2+ Leu/uL (Negative); URINE NITRATE NEGATIVE (NEGATIVE); URINE PROTEIN 1+ mg/dL (NEGATIVE); URINE UROBILINOGEN NORMAL mg/dL (0.2-1.0)
[2016-11-21] MEDS ORDERED: Sodium Chloride 0.9% 1,000 ML ONE (11:39)
[2016-11-21] MEDS ORDERED: Morphine 4 MG/ML VIAL ONE (11:39)
[2016-11-21 11:50] LABS: BASO # 0.1 K/uL (0.0-0.2); BASO % 1.7 % (0.0-2.0); EOS # 0.3 K/uL (0.0-0.7); EOS % 5.8 % (0.0-4.0); HEMOGLOBIN 15.9 g/dL (12.0-18.0); LYMPH # 2.5 K/uL (1.0-4.3); LYMPH % 41.9 % (20.0-40.0); MEAN CELL VOLUME 84.3 fL (80.0-94.0); MEAN CORPUSCULAR HEMOGLOBIN 28.2 pg (27.0-31.0); MEAN CORPUSCULAR HGB CONC 33.5 g/dL (33.0-37.0); MEAN PLATELET VOLUME 7.8 fL (7.2-11.7); MONO # 0.4 K/uL (0.0-0.8); MONO % 5.9 % (0.0-10.0); NEUT # 2.7 K/uL (1.8-7.0); NEUT % 44.7 % (50.0-75.0); RBC 5.63 Mil/uL (4.40-5.90); RED CELL DISTRIBUTION WIDTH 14.9 % (11.5-14.5); WHITE BLOOD COUNT 5.9 K/uL (4.8-10.8)
[2016-11-21 11:52] LABS: ALBUMIN 4.3 g/dL (3.5-5.0)
[2016-11-21 11:55] LABS: AST/SGOT 31 U/L (17-59); GFR AFRICAN-AMERICAN > 60; GFR NON-AFRICAN AMERICAN > 60
[2016-11-21 11:56] LABS: ALB/GLOB RATIO 1.1 (1.0-2.1); ALT/SGPT 26 U/L (21-72); BLOOD UREA NITROGEN 10 mg/dL (9-20); CALCIUM 9.6 mg/dl (8.6-10.4); LIPASE 28 U/L (23-300)
--- NOTE | 2016-11-21 12:38 | CT ---
PROCEDURE: CT Abdomen and Pelvis without intravenous contrast HISTORY: Left flank pain, r/o stone COMPARISON: 11/03/2016 TECHNIQUE: CT scan of the abdomen and pelvis was performed without administration of intravenous contrast. Oral contrast was not administered. Coronal and sagittal reformatted images were obtained. Radiation dose: Total exam DLP = 577.13 mGy-cm. This CT exam was performed using one or more of the following dose reduction techniques: Automated exposure control, adjustment of the mA and/or kV according to patient size, and/or use of iterative reconstruction technique. FINDINGS: This study was performed for targeted evaluation for urinary calculi and should not be considered a complete CT scan of the abdomen and pelvis. Examination is limited in the absence of oral and intravenous contrast. LOWER THORAX: The lung bases are clear. LIVER: The liver is normal. No gross lesion or ductal dilatation. GALLBLADDER AND BILE DUCTS: There are no calcified gallstones. PANCREAS: The pancreas is normal in size. No gross lesion or ductal dilatation. SPLEEN: The spleen is normal in size. ADRENALS: Normal in size. No mass. KIDNEYS AND URETERS: Both kidneys are normal in size. There is redemonstration of a 14 x 12 mm round obstructing stone at the left UV junction with interval decompression of the collecting system. There has been interval placement of a double-J ureteral stent which is in customary position with its proximal tip in the upper pole collecting system. No nephrolithiasis. VASCULATURE: Unremarkable. BOWEL: The small bowel loops are normal in caliber. There is moderate amount of stool in the colon. APPENDIX: No inflammatory changes in the right lower quadrant. The appendix is normal. PERITONEUM: No free fluid. No free air. LYMPH NODES: No enlarged lymph nodes. BLADDER: The urinary bladder is well distended and normal in appearance REPRODUCTIVE: Unremarkable. BONES: No acute fracture. Within normal limits for the patient's age. OTHER FINDINGS: None. IMPRESSION: Interval placement of a left pelviureteral stent with remains in customary position. Stable position of a 14 x 12 mm obstructing stone at the left UV junction. Mild fullness in the upper pole collecting system without sahil hydronephrosis.
--- NOTE | 2016-11-21 13:16 | C.PDOC ---
Time Seen by Provider: 11/21/16 10:55 Chief Complaint (Nursing): Back Pain Past Medical History Vital Signs: Last Vital Signs Temp 98.1 F 11/21/16 10:19 Pulse 76 11/21/16 10:19 Resp 18 11/21/16 10:19 BP 129/68 11/21/16 10:19 Pulse Ox 99 11/21/16 10:19 - Medical History PMH: Kidney Stones, Chronic Kidney Disease - [facility] Procedures DILATION OF LEFT URETER WITH INTRALUMINAL DEVICE, ENDO (11/03/16) Family History: States: Unknown Family Hx - Social History Hx Alcohol Use: No Hx Substance Use: No ED Course And Treatment - Laboratory Results Result Diagrams: 11/21/16 11:37 11/21/16 11:37 O2 Sat by Pulse Oximetry: 99
--- NOTE | 2016-11-21 13:16 | C.PDOC ---
History Of Present Illness 41-year-old male, presents to the emergency department with complaints of back pain. Patient states he has been experiencing left-flank pain for the past two weeks. Pain is 8/10, associated with nausea and dysuria. Patient was seen by his PMD, who prescribed pain meds, and referred him to the urologist, who sent him to the ED for further evaluation. Patient denies vomiting, fevers, chills, chest pain, shortness of breath, or any other associated symptoms. No other complaints at this time. Urologist Dr Portillo Time Seen by Provider: 11/21/16 10:55 Chief Complaint (Nursing): Back Pain History Per: Patient History/Exam Limitations: no limitations Onset/Duration Of Symptoms: Days Current Symptoms Are (Timing): Still Present Severity: Moderate Past Medical History Reviewed: Historical Data, Nursing Documentation, Vital Signs Vital Signs: Last Vital Signs Temp 98.5 F 11/21/16 13:23 Pulse 75 11/21/16 14:39 Resp 18 11/21/16 13:23 BP 134/85 11/21/16 13:23 Pulse Ox 99 11/21/16 18:38 - Medical History PMH: Kidney Stones, Chronic Kidney Disease - [facility] Procedures DILATION OF LEFT URETER WITH INTRALUMINAL DEVICE, ENDO (11/03/16) Family History: States: No Known Family Hx - Social History Hx Alcohol Use: No Hx Substance Use: No Review Of Systems Except As Marked, All Systems Reviewed And Found Negative. Constitutional: Negative for: Fever Cardiovascular: Negative for: Chest Pain Respiratory: Negative for: Shortness of Breath Gastrointestinal: Positive for: Nausea. Negative for: Vomiting, Abdominal Pain Genitourinary: Positive for: Dysuria. Negative for: Hematuria Musculoskeletal: Positive for: Back Pain Physical Exam - Physical Exam Appears: Non-toxic, No Acute Distress Skin: Warm, Dry, No Rash Head: Atraumatic, Normacephalic Eye(s): bilateral: Normal Inspection, PERRL, EOMI Nose: Normal Oral Mucosa: Moist Lips: Normal Appearing Neck: Normal ROM Cardiovascular: Rhythm Regular, No Murmur Respiratory: Normal Breath Sounds, No Accessory Muscle Use, No Rales, No Rhonchi , No Wheezing Gastrointestinal/Abdominal: Soft, No Tenderness Back: CVA Tenderness (Left), No Vertebral Tenderness, No Paraspinal Tenderness Extremity: Normal ROM, No Tenderness, No Swelling Neurological/Psych: Oriented x3, Normal Speech, Normal Motor Gait: Steady ED Course And Treatment - Laboratory Results Result Diagrams: 11/21/16 11:37 11/21/16 11:37 O2 Sat by Pulse Oximetry: 99 (on RA) Pulse Ox Interpretation: Normal - CT Scan/US CT ABD.PEL Other Rad Studies (CT/US): Read By Radiologist, Radiology Report Reviewed CT/US Interpretation: Accession No. : [id number]. Patient Name / ID : SHELLY ZALDIVAR / [id number]. Exam Date : 11/21/2016 12:07:05 ( Approved ). Study Comment : Sex / Age : M / 41Y. Creator : DARON LO MD. Dictator : DARON LO MD. Computer Science Instructor : Literacy Tutor : DARON LO MD. Approver2 : Report Date : 11/21/2016 12:36:31. My Comment : . PROCEDURE: CT Abdomen and Pelvis without intravenous contrast. HISTORY: Left flank pain, r/o stone. COMPARISON: 11/03/2016. TECHNIQUE: CT scan of the abdomen and pelvis was performed without administration of intravenous contrast. Oral contrast was not administered. Coronal and sagittal reformatted images were obtained. Radiation dose: Total exam DLP = 577.13 mGy-cm. This CT exam was performed using one or more of the following dose reduction techniques: Automated exposure control, adjustment of the mA and/or kV according to patient size, and/ or use of iterative reconstruction technique. FINDINGS: This study was performed for targeted evaluation for urinary calculi and should not be considered a complete CT scan of the abdomen and pelvis. Examination is limited in the absence of oral and intravenous contrast. LOWER THORAX: The lung bases are clear. LIVER: The liver is normal. No gross lesion or ductal dilatation. GALLBLADDER AND BILE DUCTS: There are no calcified gallstones. PANCREAS: The pancreas is normal in size. No gross lesion or ductal dilatation. SPLEEN: The spleen is normal in size. ADRENALS: Normal in size. No mass. KIDNEYS AND URETERS: Both kidneys are normal in size. There is redemonstration of a 14 x 12 mm round obstructing stone at the left UV junction with interval decompression of the collecting system. There has been interval placement of a double-J ureteral stent which is in customary position with its proximal tip in the upper pole collecting system. No nephrolithiasis. VASCULATURE: Unremarkable. BOWEL: The small bowel loops are normal in caliber. There is moderate amount of stool in the colon. APPENDIX: No inflammatory changes in the right lower quadrant. The appendix is normal. PERITONEUM: No free fluid. No free air. LYMPH NODES: No enlarged lymph nodes. BLADDER: The urinary bladder is well distended and normal in appearance. REPRODUCTIVE: Unremarkable. BONES: No acute fracture. Within normal limits for the patient's age. OTHER FINDINGS: None. IMPRESSION: Interval placement of a left pelviureteral stent with remains in customary position. Stable position of a 14 x 12 mm obstructing stone at the left UV junction. Mild fullness in the upper pole collecting system without sahil hydronephrosis. Progress Note: CT Abd/Pel, bloodwork, UA and urine culture ordered and reviewed. patient treated with IVFs, Toradol, Zofran, and Morphine Medical Decision Making Medical Decision Making: The case was discussed with Dr. Portillo (Urologist) who states that the patient had a stent placed on Monday and placed on Macrobid. He states that the pt will need to follow up [facility] for possible lithotripsy in 2 days. On re-exam, the patient reports improvement of symptoms. Lungs are CTA, heart is RRR, abdomen is soft, non-tender and patient is tolerating PO well. Ambulatory in the ED with steady gait. Follow up with the medical doctor within 1-2 days. Return if worsened. Disposition - Disposition Referrals: Jude Portillo MD [Staff Provider] - Disposition: HOME/ ROUTINE Disposition Time: 12:30 Condition: GOOD Additional Instructions: YOU WILL BE SCHEDULED FOR POSSIBLE LITHOTRIPSY IN [address] FOLLOW UP WITH DR. PORTILLO WITHIN 1-2 DAYS WITHOUT FAIL. RETURN IF WORSENED. Prescriptions: Naproxen [Naprosyn] 500 mg PO BID #20 tab oxyCODONE/Acetaminophen [Percocet 5/325 mg Tab] 1 tab PO QID PRN #20 tab PRN Reason: Pain Tamsulosin [Flomax] 0.4 mg PO DAILY #30 cap Instructions: Renal Colic (ED) Forms: Gen Discharge Inst Croatian - Clinical Impression Clinical Impression: Nephrolithiasis, Hydronephrosis - PA / LOCOMOTIVE ENGINEER DIESEL / Resident Statement MD/DO has reviewed & agrees with the documentation as recorded. - Scribe Statement The provider has reviewed the documentation as recorded by the Simonaibdanae Thompson All medical record entries made by the Simonaibdanae were at my direction and personally dictated by me. I have reviewed the chart and agree that the record accurately reflects my personal performance of the history, physical exam, medical decision making, and the department course for this patient. I have also personally directed, reviewed, and agree with the discharge instructions and disposition.
[2016-11-21 13:24] VITALS: BP 134/85; TEMP 98.5
[2016-11-21 14:40] VITALS: PULSE 75
== END 2016-11-21 14:40 | disposition home or self-care (01) ==
LOC: C.ER 10:17
DX: N20.0 Calculus of kidney (principal); N13.30 Unspecified hydronephrosis
CPT/HCPCS: 74176; 80053; 81001; 83690; 85025; 87086; 96374; 96375; 99285; J1885; J2270; J2405; J7040

== ENCOUNTER 2016-12-09 07:07 | Emergency (ER) | payer MEDICAID ==
[2016-12-09 07:07] VITALS: BMI 27.1
[2016-12-09] MEDS ORDERED: Sodium Chloride 0.9% 1,000 ML IV ONE (07:59)
--- NOTE | 2016-12-09 08:00 | C.PDOC ---
History Of Present Illness 41 yr old male with history of left kidney stone, s/p stent placement by , presents to the ER for reevaluation of left flank pain worsening for the past week. Patient reports similar symptoms in the past, was seen in ED on 11/21/16 for similar complaints. Patient describes the pain as left flank, constant, severe, radiating to left groin and pubic area. Patient reports difficulty urinating. Denies fever, chills, dizziness, neck pain, sore throat, nausea, vomiting, hematuria, testicular swelling and pain. Ambulate to Ed for evaluation, appears in pain. Time Seen by Provider: 12/09/16 07:25 Chief Complaint (Nursing): Back Pain History Per: Patient History/Exam Limitations: no limitations Onset/Duration Of Symptoms: Worse Since (Past week ) Past Medical History Reviewed: Historical Data, Nursing Documentation, Vital Signs Vital Signs: Last Vital Signs Temp 98.1 F 12/09/16 11:21 Pulse 69 12/09/16 11:21 Resp 18 12/09/16 11:21 BP 135/87 12/09/16 11:21 Pulse Ox 100 12/09/16 11:21 - Medical History PMH: Kidney Stones, Chronic Kidney Disease - [facility] Procedures DILATION OF LEFT URETER WITH INTRALUMINAL DEVICE, ENDO (11/03/16) Family History: States: No Known Family Hx - Social History Hx Alcohol Use: Yes Hx Substance Use: No Review Of Systems Except As Marked, All Systems Reviewed And Found Negative. Constitutional: Negative for: Fever Gastrointestinal: Positive for: Abdominal Pain (Left flank pain ). Negative for : Nausea, Vomiting Genitourinary: Positive for: Other ((+) Radiating pain to eft groin pain and pubic area). Negative for: Dysuria, Hematuria Neurological: Negative for: Weakness, Numbness Physical Exam - Physical Exam Appears: Non-toxic, Toxic, Other (severe painful discomfort) Skin: Warm, Dry, No Rash Oral Mucosa: Moist, No Drooling Throat: No Erythema, No Exudate, No Drooling Neck: Supple Chest: Symmetrical, No Tenderness Cardiovascular: Rhythm Regular, No Murmur Respiratory: No Rales, No Rhonchi, No Wheezing Gastrointestinal/Abdominal: Soft, Tenderness (Mod Left flank tenderness, mild suprapubic tenderness), No Organomegaly, No Distention, No Guarding, No Rebound Back: No CVA Tenderness Extremity: No Pedal Edema, No Swelling Neurological/Psych: Oriented x3, Normal Speech, Normal Motor ED Course And Treatment - Laboratory Results Result Diagrams: 12/09/16 07:59 12/09/16 07:59 Lab Interpretation: No Acute Changes O2 Sat by Pulse Oximetry: 99 (RA ) Pulse Ox Interpretation: Normal - CT Scan/US CT - Abd & Pelvis Other Rad Studies (CT/US): Read By Radiologist CT/US Interpretation: Accession No. : [id number]. Patient Name / ID : SHELLY ZALDIVAR / [id number]. Exam Date : 12/09/2016 08:15:06 ( Approved ). Study Comment : Sex / Age : M / 41Y. Creator : Axel Keane MD. Dictator : Axel Keane MD. Email Marketing Executive : Technical Services Librarian : Axel Keane MD. Approver2 : Report Date : 12/09/2016 10:02:48. My Comment : . PROCEDURE: CT Abdomen and Pelvis without intravenous contrast. HISTORY: abd pain. COMPARISON: 11/21/2016. TECHNIQUE: Technique. Contrast Dose: Radiation dose: Total exam DLP = 323 mGy-cm. This CT exam was performed using one or more of the following dose reduction techniques: Automated exposure control, adjustment of the mA and/or kV according to patient size, and/or use of iterative reconstruction technique. FINDINGS: LOWER THORAX: Unremarkable. LIVER: Unremarkable. No gross lesion or ductal dilatation. GALLBLADDER AND BILE DUCTS: Unremarkable. PANCREAS: Unremarkable. No gross lesion or ductal dilatation. SPLEEN: Unremarkable. ADRENALS: Unremarkable. No mass. KIDNEYS AND URETERS: Re-demonstration of a left ureteral stent with decompression of the left renal collecting system. Stable 14 x 12 millimeter calculus in the left renal pelvis without evidence of migration. VASCULATURE: Unremarkable. No aortic aneurysm. BOWEL: Unremarkable. No obstruction. No gross mural thickening. APPENDIX: Unremarkable. Normal appendix. PERITONEUM: Unremarkable. No free fluid. No free air. LYMPH NODES: Unremarkable. No enlarged lymph nodes. BLADDER: Unremarkable. REPRODUCTIVE: Unremarkable. BONES: No acute fracture. OTHER FINDINGS: None. IMPRESSION: Re- demonstration of a left ureteral stent with decompression of the left renal collecting system. Stable 14 x 12 millimeter calculus in the left renal pelvis without evidence of migration. Progress Note: Case discussed with , urologist and results review. As per , discharge with outpt f/u and stent placement recommend at this time along with pain medication- percocet, abx. On re-eval, pt is afebrile , hemodynamicaly stable. non-toxic. Pt reports, moderate improvement in pain after ED treatment. Tolerate Po well in Ed. ENT: brianna cute findings. Abd: benign, (-) guarding, (-) rebound. back: (-) CVA tenderness. results review and discussed with pt. Pt advised to F/u with today until 3PM at his office for re-evaluation and arrange further tx/stent placement. Pt understand and agrees with discharge now. Medical Decision Making Medical Decision Making: PLAN: * CT - Abd & Pelvis * CBC * BMP * Urinalysis * Morphine IVP * Toradol IVP * Sodium Chloride IV Disposition Counseled Patient/Family Regarding: Studies Performed, Diagnosis, Need For Followup, Rx Given - Disposition Referrals: Jude Portillo MD [Staff Provider] - Disposition: HOME/ ROUTINE Disposition Time: 10:57 Condition: STABLE Additional Instructions: Encourage fluids Take medication as prescribed FOLLOW UP WITH TODAY 12/09/16 BEFORE 3PM AT HIS OFFICE FOR RE- EVALUATION AND FURTHER TREATMENT SCHEDULED RETURN TO ED IF ANY WORSENING OR NEW CHANGES. Prescriptions: Ciprofloxacin [Cipro] 1 tab PO BID #14 tab oxyCODONE/Acetaminophen [Percocet 5/325 mg Tab] 1 tab PO QID PRN #14 tab PRN Reason: Pain Instructions: Kidney Stones (ED), Urinary Tract Infection in Women (ED) - Clinical Impression Clinical Impression: Nephrolithiasis, UTI (urinary tract infection) - PA / CODING SPEC / Resident Statement MD/DO has reviewed & agrees with the documentation as recorded. - Scribe Statement The provider has reviewed the documentation as recorded by the Scribdanae Beckwith All medical record entries made by the Glenny were at my direction and personally dictated by me. I have reviewed the chart and agree that the record accurately reflects my personal performance of the history, physical exam, medical decision making, and the department course for this patient. I have also personally directed, reviewed, and agree with the discharge instructions and disposition.
[2016-12-09 08:16] LABS: BASO # 0.1 K/uL (0.0-0.2); BASO % 1.3 % (0.0-2.0); EOS # 0.4 K/uL (0.0-0.7); EOS % 6.7 % (0.0-4.0); HEMATOCRIT 47.3 % (35.0-51.0); LYMPH # 2.7 K/uL (1.0-4.3); LYMPH % 48.4 % (20.0-40.0); MEAN CELL VOLUME 85.3 fL (80.0-94.0); MEAN CORPUSCULAR HGB CONC 32.8 g/dL (33.0-37.0); MEAN PLATELET VOLUME 8.5 fL (7.2-11.7); MONO # 0.4 K/uL (0.0-0.8); MONO % 7.7 % (0.0-10.0); NRBC % 0.1 % (0.0-2.0); RED CELL DISTRIBUTION WIDTH 14.5 % (11.5-14.5); WHITE BLOOD COUNT 5.7 K/uL (4.8-10.8)
[2016-12-09 08:32] LABS: CHLORIDE 100 mmol/L (98-107); POTASSIUM 4.2 mmol/L (3.6-5.2); SODIUM 136 mmol/L (132-148)
[2016-12-09 08:35] LABS: BLOOD UREA NITROGEN 10 mg/dL (9-20); CALCIUM 9.2 mg/dl (8.6-10.4); CARBON DIOXIDE 27 mmol/L (22-30); GFR AFRICAN-AMERICAN > 60; GLUCOSE,RANDOM 78 mg/dL (75-110)
[2016-12-09] MEDS ORDERED: Morphine 4 MG/ML VIAL ONE (08:37)
[2016-12-09 09:30] LABS: RBC URINE 327 /hpf (0-3); URINE BACTERIA RARE (<OCC); URINE BILIRUBIN NEGATIVE (NEGATIVE); URINE BLOOD 2+ (NEGATIVE); URINE COLOR Straw (YELLOW); URINE GLUCOSE (UA) NORMAL (Normal); URINE KETONE NEGATIVE (NEGATIVE); URINE LEUKOCYTE ESTERASE 3+ Leu/uL (Negative); URINE PROTEIN 1+ mg/dL (NEGATIVE); URINE UROBILINOGEN NORMAL mg/dL (0.2-1.0); WBC URINE 20 /hpf (0-5)
--- NOTE | 2016-12-09 10:04 | CT ---
PROCEDURE: CT Abdomen and Pelvis without intravenous contrast HISTORY: abd pain COMPARISON: 11/21/2016. TECHNIQUE: Technique. Contrast Dose: Radiation dose: Total exam DLP = 323 mGy-cm. This CT exam was performed using one or more of the following dose reduction techniques: Automated exposure control, adjustment of the mA and/or kV according to patient size, and/or use of iterative reconstruction technique. FINDINGS: LOWER THORAX: Unremarkable. LIVER: Unremarkable. No gross lesion or ductal dilatation. GALLBLADDER AND BILE DUCTS: Unremarkable. PANCREAS: Unremarkable. No gross lesion or ductal dilatation. SPLEEN: Unremarkable. ADRENALS: Unremarkable. No mass. KIDNEYS AND URETERS: Re-demonstration of a left ureteral stent with decompression of the left renal collecting system. Stable 14 x 12 millimeter calculus in the left renal pelvis without evidence of migration. VASCULATURE: Unremarkable. No aortic aneurysm. BOWEL: Unremarkable. No obstruction. No gross mural thickening. APPENDIX: Unremarkable. Normal appendix. PERITONEUM: Unremarkable. No free fluid. No free air. LYMPH NODES: Unremarkable. No enlarged lymph nodes. BLADDER: Unremarkable. REPRODUCTIVE: Unremarkable. BONES: No acute fracture. OTHER FINDINGS: None. IMPRESSION: Re-demonstration of a left ureteral stent with decompression of the left renal collecting system. Stable 14 x 12 millimeter calculus in the left renal pelvis without evidence of migration.
[2016-12-09] MEDS ORDERED: cefTRIAXone IV 1 gm in Dextros 50 ML IVPB ONE (10:16)
[2016-12-09 11:22] VITALS: BP 135/87; PULSE 69; RESP 18; TEMP 98.1
[2016-12-09 18:19] VITALS: O2SAT 99
== END 2016-12-09 11:49 | disposition home or self-care (01) ==
LOC: C.ER 07:07
DX: N39.0 Urinary tract infection, site not specified (principal); N20.0 Calculus of kidney
CPT/HCPCS: 74176; 80048; 81001; 85025; 96361; 96365; 96375; 99285; J0696; J1885; J2270; J7040

== ENCOUNTER 2017-01-16 14:37 | Emergency (ER) | payer MEDICAID ==
[2017-01-16 14:37] VITALS: BMI 27.1
[2017-01-16 15:51] LABS: BASO # 0.1 K/uL (0.0-0.2); BASO % 1.1 % (0.0-2.0); EOS # 0.2 K/uL (0.0-0.7); EOS % 3.7 % (0.0-4.0); HEMATOCRIT 46.1 % (35.0-51.0); MEAN CELL VOLUME 84.9 fL (80.0-94.0); MEAN CORPUSCULAR HEMOGLOBIN 28.6 pg (27.0-31.0); MEAN CORPUSCULAR HGB CONC 33.7 g/dL (33.0-37.0); MEAN PLATELET VOLUME 7.6 fL (7.2-11.7); MONO # 0.5 K/uL (0.0-0.8); MONO % 7.8 % (0.0-10.0); NRBC % 0.2 % (0.0-2.0); RED CELL DISTRIBUTION WIDTH 13.9 % (11.5-14.5); WHITE BLOOD COUNT 6.5 K/uL (4.8-10.8)
[2017-01-16] MEDS ORDERED: Sodium Chloride 0.9% 1,000 ML IV ONE (15:54)
[2017-01-16 15:59] LABS: CHLORIDE 100 mmol/L (98-107); SODIUM 140 mmol/L (132-148)
[2017-01-16 16:01] LABS: BILIRUBIN,TOTAL 0.9 mg/dL (0.2-1.3); CARBON DIOXIDE 26 mmol/L (22-30); GFR AFRICAN-AMERICAN > 60
[2017-01-16 16:02] LABS: ALB/GLOB RATIO 1.1 (1.0-2.1); ALKALINE PHOSPHATASE 97 U/L (38-126); ALT/SGPT 31 U/L (21-72); AST/SGOT 23 U/L (17-59); BLOOD UREA NITROGEN 14 mg/dL (9-20); CALCIUM 9.1 mg/dl (8.6-10.4); GLUCOSE,RANDOM 100 mg/dL (75-110); TOTAL PROTEIN 7.7 g/dL (6.3-8.3)
[2017-01-16 16:02] LABS: RBC URINE 713 /hpf (0-3); URINE BILIRUBIN NEGATIVE (NEGATIVE); URINE BLOOD 3+ (NEGATIVE); URINE CALCIUM OXALATE CRYSTALS OCC /hpf (<OCC); URINE COLOR Yellow (YELLOW); URINE GLUCOSE (UA) NORMAL (Normal); URINE KETONE NEGATIVE (NEGATIVE); URINE LEUKOCYTE ESTERASE 3+ Leu/uL (Negative); URINE PROTEIN 1+ mg/dL (NEGATIVE); URINE UROBILINOGEN NORMAL mg/dL (0.2-1.0); WBC URINE 30 /hpf (0-5)
[2017-01-16] MEDS ORDERED: Sodium Chloride 0.9% 1,000 ML ONE (16:04)
--- NOTE | 2017-01-16 16:55 | C.PDOC ---
History Of Present Illness 41 year old male, with past medical history that includes chronic kidney disease and kidney stones, presents to the emergency department for left sided flank/back pain which began earlier today. The patient reports he also has hematuria and notes that 2 months ago he had a ureteral stent placed by Dr. Portillo. He states he went to see Dr. Portillo 3 days ago, was given "medications". T he patient is here today because his pain is worsening. He denies fever, vomiting, diarrhea, headache. Time Seen by Provider: 01/16/17 15:24 Chief Complaint (Nursing): Back Pain History Per: Patient History/Exam Limitations: no limitations Onset/Duration Of Symptoms: Persistent Current Symptoms Are (Timing): Still Present Quality Of Discomfort: "Pain" Past Medical History Reviewed: Historical Data Vital Signs: Last Vital Signs Temp 98.2 F 01/16/17 18:56 Pulse 70 01/16/17 18:56 Resp 20 01/16/17 18:56 BP 138/93 H 01/16/17 18:56 Pulse Ox 99 01/16/17 18:56 - Medical History PMH: Kidney Stones, Chronic Kidney Disease - [facility] Procedures DILATION OF LEFT URETER WITH INTRALUMINAL DEVICE, ENDO (11/03/16) Family History: States: No Known Family Hx - Social History Hx Alcohol Use: Yes Hx Substance Use: No - Immunization History Hx Tetanus Toxoid Vaccination: No Hx Influenza Vaccination: No Hx Pneumococcal Vaccination: No Review Of Systems Except As Marked, All Systems Reviewed And Found Negative. Constitutional: Negative for: Fever Cardiovascular: Negative for: Chest Pain, Palpitations Respiratory: Negative for: Cough, Shortness of Breath Gastrointestinal: Negative for: Nausea, Vomiting, Abdominal Pain, Diarrhea Genitourinary: Positive for: Hematuria Musculoskeletal: Positive for: Other (Left sided flank pain ) Neurological: Negative for: Headache Physical Exam - Physical Exam Appears: Well, Non-toxic, Other (mild pain ) Eye(s): bilateral: Normal Inspection Oral Mucosa: Moist Cardiovascular: Rhythm Regular Respiratory: Normal Breath Sounds, No Rales, No Rhonchi, No Wheezing Gastrointestinal/Abdominal: Normal Exam, Bowel Sounds, Soft, No Tenderness, No Guarding, No Rebound Back: CVA Tenderness (left sided CVA tenderness ) Extremity: Normal ROM Neurological/Psych: Oriented x3 ED Course And Treatment - Laboratory Results Result Diagrams: 01/16/17 15:47 01/16/17 15:47 O2 Sat by Pulse Oximetry: 98 (RA) Pulse Ox Interpretation: Normal - Other Rad XRAY ABD X-Ray: Viewed By Me, Read By Radiologist Interpretation: Accession No. : [id number]. Patient Name / ID : SHELLY ZALDIVAR / [id number]. Exam Date : 01/16/2017 16:34:56 ( Approved ). Study Comment : Sex / Age : M / 41Y. Creator : Man Vincent MD. Dictator : Man Vincent MD. Photoengraving Finisher : Sap Bw Bi Developer : Man Vincent MD. Approver2 : Report Date : 01/16/2017 17:11:23. My Comment : . HISTORY: Left-sided flank pain. Rule out kidney stone. COMPARISON: Comparison made with plain film radiographs abdomen pelvis 01/05/[address] scan abdomen pelvis 12/09/2016. FINDINGS: In situ left ureteral stent in good position. Re - demonstrated is a rounded -elliptical shaped approximately 12.6 mm calculus overlying the left renal silhouette adjacent to the proximal ureteral stent on supine view. BOWEL: Nonobstructive/nonspecific bowel gas pattern. Moderate amount of stool seen throughout the transverse and descending colon suggesting mild retention/constipation. BONES: Osseous structures intact. . OTHER FINDINGS: None. IMPRESSION: In situ left ureteral stent. 12.6 mm calculus projected over the left renal silhouette adjacent to the proximal margin of the stent on supine view Progress Note: Blood work, UA, renal US and KUB ordered and reviewed. Patient given IV NS bolus, IV toradol. dye penetrant testing technician states IVPs are not currently available, radiologist needs to be in house for it to be done. Recommends patient be given Rx for IVP and schedule it as outpatient. Reevaluation Time: 18:20 Reassessment Condition: Improved (Patient currently resting comfortably, states pain has improved and he feels better. He was given rx for outpatient IVP, and phone number to call and schedule test. he understands that after test is done , he should follow up with Dr. Portillo in his office. Rxs given for flomax and Vicodin. Patient understands he should return to ED if symptoms worsen.) - Physician Consult Information Physician Contacted: Jude Portillo Outcome Of Conversation: Discussed patient with Dr. Portillo, he is aware of US and Xray results. He requests IVP be done now. Disposition Counseled Patient/Family Regarding: Studies Performed, Diagnosis, Need For Followup, Rx Given - Disposition Referrals: Jude Portillo MD [Staff Provider] - Disposition: HOME/ ROUTINE Disposition Time: 18:20 Condition: STABLE Additional Instructions: SCHEDULE AN OUTPATIENT IVP, AND THEN FOLLOW UP WITH DR PORTILLO IN HIS OFFICE USE PAIN MEDICATION NEEDED CONTINUE FLOMAX DAILY RETURN TO ER IF SYMPTOMS WORSEN Prescriptions: Hydrocodone/Acetaminophen [Hydrocodon-Acetaminophen 5-325] 1 each PO Q6 PRN #15 tablet PRN Reason: Pain, Moderate (4-7) Tamsulosin [Flomax] 0.4 mg PO DAILY #15 cap Instructions: Kidney Stones (ED), Renal Colic (ED) Forms: [employer] (Romanian) Print Language: FRENCH - Clinical Impression Clinical Impression: Renal colic on left side, Kidney stone on left side - Scribe Statement The provider has reviewed the documentation as recorded by the Scribe Vivienne Thompson All medical record entries made by the Scribe were at my direction and personally dictated by me. I have reviewed the chart and agree that the record accurately reflects my personal performance of the history, physical exam, medical decision making, and the department course for this patient. I have also personally directed, reviewed, and agree with the discharge instructions and disposition.
--- NOTE | 2017-01-16 17:13 | RAD ---
HISTORY: Left-sided flank pain. Rule out kidney stone. COMPARISON: Comparison made with plain film radiographs abdomen pelvis 01/05/[address] scan abdomen pelvis 12/09/2016. FINDINGS: In situ left ureteral stent in good position. Re- demonstrated is a rounded -elliptical shaped approximately 12.6 mm calculus overlying the left renal silhouette adjacent to the proximal ureteral stent on supine view. BOWEL: Nonobstructive/nonspecific bowel gas pattern. Moderate amount of stool seen throughout the transverse and descending colon suggesting mild retention/constipation. BONES: Osseous structures intact. . OTHER FINDINGS: None. IMPRESSION: In situ left ureteral stent. 12.6 mm calculus projected over the left renal silhouette adjacent to the proximal margin of the stent on supine view
--- NOTE | 2017-01-16 17:56 | US ---
PROCEDURE: Ultrasound of the Kidneys HISTORY: left flank pain, r/o kidney stone COMPARISON: CT of the abdomen and pelvis without oral or IV contrast performed 12/09/16 TECHNIQUE: Sonogram of the kidneys. FINDINGS: RIGHT KIDNEY: Measures: 11.9 x 4.7 x 6.0 cm. No obstructing calculus, hydronephrosis, or renal cyst identified. LEFT KIDNEY: Measures: 12.9 x 6.3 x 6.6 cm. Mild hydronephrosis. No obstructing calculus identified. No renal cyst identified. OTHER FINDINGS: Left ureteral stent is present. Hyperechoic focus urinary bladder adjacent to the stent, possibly debris. Urinary bladder mass cannot be excluded. IMPRESSION: Left ureteral stent is present. Hyperechoic focus urinary bladder adjacent to the stent, possibly debris. Urinary bladder mass cannot be excluded. Mild left-sided hydronephrosis.
[2017-01-16 18:57] VITALS: BP 138/93; PULSE 70; RESP 20; TEMP 98.2
[2017-01-20 16:14] VITALS: O2SAT 98
== END 2017-01-16 18:56 | disposition home or self-care (01) ==
LOC: C.ER 14:37
DX: N20.0 Calculus of kidney (principal); N23 Unspecified renal colic
CPT/HCPCS: 74000; 76770; 80053; 81001; 85025; 87086; 96361; 96374; 99284; J1885; J7040

== ENCOUNTER 2017-02-19 14:43 | Emergency (ER) | payer MEDICAID ==
[2017-02-19 14:43] VITALS: BMI 27.1
[2017-02-19 14:54] VITALS: O2SAT 99
--- NOTE | 2017-02-19 15:04 | C.PDOC ---
History Of Present Illness 41 year old male presents to the ED for evaluation of left-sided flank pain which began this morning. Patient has past medical history of chronic kidney disease and kidney stones and notes his current pain feel similar to prior. Patient notes the pain radiates from his left flank to left groin and is associated with nausea. Patient has history of prior ureteral stent placed by Dr. Portillo on 11/25/16. Patient states he no longer wished to continue with Dr. Portillo and is pending his first appointment with Dr. Ganga Chong on 03/14. L FLANK PAIN SINCE THIS MORNING. past medical history that includes chronic kidney disease and kidney stones. CURRENT PAIN SIM TO PRIOR. L FLANK RADIATION L GROIN. +NAUSEA. HO PRIOR URETERAL STENT DR PORTILLO 11/25/16. PS NO LONGER WISHED TO CONT WITH DR PORTILLO, PENDING FIRST APPT W DR Ganga CHONG 03/14 EXAM MOD DIST NONTOXIC ABD NEG +CVAT REMAINDE RNEG Time Seen by Provider: 02/19/17 14:57 Chief Complaint (Nursing): Abdominal Pain History Per: Patient History/Exam Limitations: no limitations Onset/Duration Of Symptoms: Hrs Current Symptoms Are (Timing): Still Present Quality Of Discomfort: "Pain" Associated Symptoms: Nausea Additional History Per: Patient Past Medical History Reviewed: Historical Data, Nursing Documentation, Vital Signs Vital Signs: Last Vital Signs Temp 98.5 F 02/19/17 18:26 Pulse 64 02/19/17 18:26 Resp 18 02/19/17 18:26 BP 126/88 02/19/17 18:26 Pulse Ox 99 02/19/17 18:26 - Medical History PMH: Kidney Stones, Chronic Kidney Disease Surgical History: No Surg Hx - [facility] Procedures DILATION OF LEFT URETER WITH INTRALUMINAL DEVICE, ENDO (11/03/16) Family History: States: Unknown Family Hx - Social History Hx Alcohol Use: Yes Hx Substance Use: No - Immunization History Hx Tetanus Toxoid Vaccination: No Hx Influenza Vaccination: No Hx Pneumococcal Vaccination: No Review Of Systems Gastrointestinal: Positive for: Nausea Musculoskeletal: Positive for: Other (left-sided flank pain with radiation to left groin ) Physical Exam - Physical Exam Appears: Non-toxic, Other (in moderate distress ) Skin: Normal Color, Warm, Dry Head: Atraumatic, Normacephalic Eye(s): bilateral: Normal Inspection Oral Mucosa: Moist Neck: Supple Chest: Symmetrical, No Deformity, No Tenderness Cardiovascular: Rhythm Regular, No Murmur Respiratory: Normal Breath Sounds, No Rales, No Rhonchi, No Wheezing Gastrointestinal/Abdominal: Soft, No Tenderness, No Guarding, No Rebound Back: CVA Tenderness (left-sided ) Extremity: Normal ROM, Capillary Refill (less than 2 seconds ) Neurological/Psych: Oriented x3, Normal Speech, Normal Cognition Gait: Steady ED Course And Treatment - Laboratory Results Result Diagrams: 02/19/17 15:20 02/19/17 15:20 O2 Sat by Pulse Oximetry: 99 (on RA) Pulse Ox Interpretation: Normal Progress Note: CT A/P and labs ordered and reviewed. Flomax PO, Lidocaine IV, Toradol IVP, Tylenol PO, and Zofran IVP administered. Progress - Re-Evaluation Re-evaluation Note: 02/19/17 17:42 FEELS BETTER, VSS ASYMPT. CT FINDINGS REVIEWED. PENDING CALLBACK DR Ganga CHONG 02/19/17 18:[address] CHONG. PT REMAINS ASYMPT. ADVISED FU OFFICE. 02/19/17 18:34 d/w dr ganga chong AWARE OF ER FINDINGS ADVISES FOR PT TO COME TO OFFICE TOMORROW MORNING. PT ADVISED AND AWARE OF INSTRUCTIONS - Data Reviewed Data Reviewed: Lab, Diagnostic imaging, Old records Disposition Counseled Patient/Family Regarding: Studies Performed, Diagnosis, Need For Followup, Rx Given - Disposition Referrals: Lazaro Chong MD [Staff Provider] - Disposition: HOME/ ROUTINE Disposition Time: 18:12 Condition: IMPROVED Prescriptions: Ibuprofen [Motrin] 600 mg PO Q6 #30 tab Ondansetron [Zofran Odt] 4 mg PO TID PRN #9 odt PRN Reason: Nausea/Vomiting oxyCODONE/Acetaminophen [Percocet 5/325 mg Tab] 1 tab PO QID PRN #14 tab PRN Reason: Pain Tamsulosin [Flomax] 0.4 mg PO DAILY #14 cap Instructions: Renal Colic (ED) Forms: [employer] (South Korean) - Clinical Impression Clinical Impression: Renal colic on left side, Nephrolithiasis - Scribe Statement The provider has reviewed the documentation as recorded by the Scribe (Symone Dooley) Provider Attestation: All medical record entries made by the Scribe were at my direction and personally dictated by me. I have reviewed the chart and agree that the record accurately reflects my personal performance of the history, physical exam, medical decision making, and the department course for this patient. I have also personally directed, reviewed, and agree with the discharge instructions and disposition.
[2017-02-19] MEDS ORDERED: Sodium Chloride 0.9% 1,000 ML IV STA (15:12)
[2017-02-19] MEDS ORDERED: SODIUM CHLORIDE 0.9% IV STA (15:12)
[2017-02-19] MEDS ORDERED: LIDOCAINE IV STA (15:12)
[2017-02-19 15:24] LABS: BASO # 0.1 K/uL (0.0-0.2); BASO % 1.2 % (0.0-2.0); EOS # 0.2 K/uL (0.0-0.7); EOS % 2.8 % (0.0-4.0); HEMATOCRIT 46.5 % (35.0-51.0); LYMPH # 3.4 K/uL (1.0-4.3); LYMPH % 45.3 % (20.0-40.0); MEAN CORPUSCULAR HEMOGLOBIN 28.4 pg (27.0-31.0); MEAN CORPUSCULAR HGB CONC 34.2 g/dL (33.0-37.0); MEAN PLATELET VOLUME 8.2 fL (7.2-11.7); MONO # 0.5 K/uL (0.0-0.8); MONO % 6.4 % (0.0-10.0); NRBC % 0.1 % (0.0-2.0); RED CELL DISTRIBUTION WIDTH 14.1 % (11.5-14.5); WHITE BLOOD COUNT 7.5 K/uL (4.8-10.8)
[2017-02-19] MEDS ORDERED: SODIUM CHLORIDE 0.9% IV ONE (15:30)
[2017-02-19] MEDS ORDERED: LIDOCAINE IV ONE (15:30)
[2017-02-19 15:31] LABS: CHLORIDE 101 mmol/L (98-107); POTASSIUM 3.9 mmol/L (3.6-5.2); SODIUM 141 mmol/L (132-148)
[2017-02-19 15:33] LABS: RBC URINE 1198 /hpf (0-3); URINE BACTERIA RARE (<OCC); URINE BILIRUBIN NEGATIVE (NEGATIVE); URINE BLOOD 3+ (NEGATIVE); URINE COLOR Yellow (YELLOW); URINE GLUCOSE (UA) NORMAL (Normal); URINE KETONE NEGATIVE (NEGATIVE); URINE LEUKOCYTE ESTERASE 1+ Leu/uL (Negative); URINE PROTEIN 2+ mg/dL (NEGATIVE); URINE UROBILINOGEN NORMAL mg/dL (0.2-1.0); WBC URINE 13 /hpf (0-5)
[2017-02-19 15:34] LABS: BLOOD UREA NITROGEN 11 mg/dL (9-20); CARBON DIOXIDE 25 mmol/L (22-30); GFR AFRICAN-AMERICAN > 60
[2017-02-19 15:35] LABS: CALCIUM 9.7 mg/dl (8.6-10.4); GLUCOSE,RANDOM 75 mg/dL (75-110)
[2017-02-19 16:05] VITALS: RESP 18
--- NOTE | 2017-02-19 16:10 | CT ---
PROCEDURE: CT abdomen and pelvis dated 02/19/2017 HISTORY: Left flank pain. COMPARISON: Comparison made with CT scan abdomen pelvis 12/09/2016 TECHNIQUE: Contiguous axial images of the abdomen and pelvis. Oral contrast was administered. No IV contrast given. Coronal and Sagittal reformats generated. Radiation dose: Total exam DLP = 421.07 mGy-cm. This CT exam was performed using one or more of the following dose reduction techniques: Automated exposure control, adjustment of the mA and/or kV according to patient size, and/or use of iterative reconstruction technique. FINDINGS: LOWER THORAX: Unremarkable. Minor passive atelectasis both posterior lung charles. No infiltrate effusion or basilar pneumothorax. Heart appears mildly enlarged. No significant pericardial effusion. LIVER: Liver exhibits normal size and attenuation pattern without mass collection or calcification. All GALLBLADDER AND BILE DUCTS: Gallbladder appears contracted and cannot be adequately evaluated. No obvious intraluminal calculi gallbladder calculi. PANCREAS: Pancreas grossly unremarkable. SPLEEN: Unremarkable. No splenomegaly. ADRENALS: No adrenal. KIDNEYS AND URETERS: Lesions re- demonstrated is an in situ left ureteral stent which appears to be in good position. Large approximately 16 mm x 10 mm elliptical shaped calculus again noted within left renal pelvis /UPJ region however no evidence of hydronephrosis. . BLADDER: Urinary bladder incompletely distended which presumably accounts slight thick-walled appearance. Muscular hypertrophy may contribute. Cystitis not excluded. REPRODUCTIVE: Unremarkable. APPENDIX: Appendix not seen with complete certainty however no radiographic evidence of acute appendicitis. BOWEL: Unremarkable. No obstruction. No gross mural thickening. PERITONEUM: Unremarkable. No fluid collection. No free air. Small fat containing umbilical hernia. LYMPH NODES: There are several small to medium sized lymph nodes within right lower quadrant and lower mid abdomen ; rule out mesenteric adenitis VASCULATURE: Unremarkable. No aortic aneurysm. BONES: Mild multilevel degenerative spondylosis of the lumbar and thoracic spine OTHER FINDINGS: None. IMPRESSION: In situ left ureteral stent. No change large 16 mm x 10 mm elliptical shaped calculus within the proximal left renal pelvis /UPJ region. No evidence of hydronephrosis. Rule out mesenteric adenitis as above. Small fat containing umbilical hernia.
[2017-02-19 18:27] VITALS: BP 126/88; PULSE 64; TEMP 98.5
== END 2017-02-19 18:28 | disposition home or self-care (01) ==
LOC: C.ER 14:43
DX: N20.0 Calculus of kidney (principal); Z87.442 Personal history of urinary calculi; N18.9 Chronic kidney disease, unspecified
CPT/HCPCS: 74176; 80048; 81001; 85025; 96361; 96374; 96375; 99285; J1885; J2001; J2405; J7040

== ENCOUNTER 2017-02-27 09:56 | Emergency (ER) | payer MEDICAID ==
[2017-02-27 09:56] VITALS: BMI 27.1
--- NOTE | 2017-02-27 11:49 | C.PDOC ---
History Of Present Illness 41 year old male who presents to the ER with a complaint of new onset dysuria and hematuria that began this morning. Patient has a Hx of ureteral stent; denies abdominal pain or other associated symptoms. Time Seen by Provider: 02/27/17 10:54 Chief Complaint (Nursing): Male Genitourinary History Per: Patient History/Exam Limitations: no limitations Onset/Duration Of Symptoms: Hrs Current Symptoms Are (Timing): Still Present Quality Of Discomfort: Unable To Describe Associated Symptoms: denies: Fever, Chills Alleviating Factors: None Recent travel outside of the [place]: No Past Medical History Reviewed: Historical Data, Nursing Documentation, Vital Signs Vital Signs: Last Vital Signs Temp 97.6 F 02/27/17 10:00 Pulse 74 02/27/17 10:00 Resp 18 02/27/17 10:00 BP 135/84 02/27/17 10:00 Pulse Ox 97 02/27/17 12:15 - Medical History PMH: Kidney Stones, Chronic Kidney Disease - [facility] Procedures DILATION OF LEFT URETER WITH INTRALUMINAL DEVICE, ENDO (11/03/16) Family History: States: Unknown Family Hx - Social History Hx Alcohol Use: Yes Hx Substance Use: No - Immunization History Hx Tetanus Toxoid Vaccination: No Hx Influenza Vaccination: No Hx Pneumococcal Vaccination: No Review Of Systems Except As Marked, All Systems Reviewed And Found Negative. Constitutional: Negative for: Fever, Chills Gastrointestinal: Negative for: Abdominal Pain Genitourinary: Positive for: Dysuria, Hematuria Musculoskeletal: Negative for: Back Pain Physical Exam - Physical Exam Appears: Non-toxic, No Acute Distress Skin: Normal Color, Warm, Dry Head: Atraumatic, Normacephalic Oral Mucosa: Moist Chest: Symmetrical Cardiovascular: Rhythm Regular Respiratory: No Accessory Muscle Use Gastrointestinal/Abdominal: Soft Neurological/Psych: Oriented x3, Normal Speech, Normal Cognition ED Course And Treatment O2 Sat by Pulse Oximetry: 97 (Room air) Pulse Ox Interpretation: Normal Progress - Re-Evaluation Re-evaluation Note: 02/27/17 12:08 D/W DR Ganga WONG EVAL IN ER 02/27/17 13:40 S/P KALLIE CASSIDY PT FOR OUTPT [facility] TOMORROW. DEFER ABX, DC W PYRIDIUM - Data Reviewed Data Reviewed: Lab, Diagnostic imaging, Old records - Continuity of Care Discussed pt. case with [facility] consultant/specialty: Urology Medical Decision Making Medical Decision Making: Plan: * Abdominal x-ray * Prydium * Urinalysis Disposition Counseled Patient/Family Regarding: Studies Performed, Diagnosis, Need For Followup - Disposition Referrals: Lazaro Chong MD [Staff Provider] - Disposition: HOME/ ROUTINE Disposition Time: 13:41 Condition: IMPROVED Prescriptions: Phenazopyridine HCl [Pyridium] 200 mg PO BID #6 tablet Instructions: Acute Hematuria (ED) Forms: [employer] (Dutch) - Clinical Impression Clinical Impression: Dysuria - Scribe Statement The provider has reviewed the documentation as recorded by the Scribe Praveen Morrison All medical record entries made by the Scribe were at my direction and personally dictated by me. I have reviewed the chart and agree that the record accurately reflects my personal performance of the history, physical exam, medical decision making, and the department course for this patient. I have also personally directed, reviewed, and agree with the discharge instructions and disposition.
[2017-02-27 11:59] LABS: RBC URINE 1104 /hpf (0-3); URINE BILIRUBIN NEGATIVE (NEGATIVE); URINE BLOOD 3+ (NEGATIVE); URINE COLOR Yellow (YELLOW); URINE GLUCOSE (UA) NORMAL (Normal); URINE KETONE NEGATIVE (NEGATIVE); URINE LEUKOCYTE ESTERASE 3+ Leu/uL (Negative); URINE PROTEIN 2+ mg/dL (NEGATIVE); URINE UROBILINOGEN NORMAL mg/dL (0.2-1.0); WBC URINE 21 /hpf (0-5)
--- NOTE | 2017-02-27 12:49 | RAD ---
HISTORY: RENAL STONE COMPARISON: CT abdomen and pelvis without contrast performed 02/19/17, abdominal x-ray performed 01/16/17 FINDINGS: BOWEL: Nonobstructive bowel gas pattern. Moderate diffuse constipation. Calcifications in the left upper quadrant measuring up to 9 mm consistent with calculi. Left ureteral stent. BONES: No acute osseous abnormality is detected. OTHER FINDINGS: Left ureteral stent. IMPRESSION: Calcifications in the left upper quadrant measuring up to 9 mm consistent with calculi. Left ureteral stent. Moderate diffuse constipation.
[2017-02-27 13:56] VITALS: BP 123/85; PULSE 73; RESP 16; TEMP 98.3; O2SAT 98
== END 2017-02-27 14:14 | disposition home or self-care (01) ==
LOC: C.ER 09:56
DX: R30.0 Dysuria (principal)